=== PATIENT | female | born 1975 | race Asian ===

== ENCOUNTER 2025-11-06 15:53 | Inpatient (IN) | payer MEDICAID ==
[~2025-11-06] VITALS: Ht 162.6 cm; Wt 68.5 kg
[2025-11-06] MEDS ORDERED: IOHEXOL 350 MG/ML 100 ML VIAL ONE (16:37)
[2025-11-06 16:58] LABS: PLATELET COUNT (AUTO) 233 K/uL (150-450); RED BLOOD CELL COUNT(AUTO) 3.25 MIL/uL (4.00-5.20); RED CELL DISTRIBUTION WIDTH 13.3 % (11.5-14.5); WHITE BLOOD COUNT (AUTO) 9.0 K/uL (4.5-11.0)
[2025-11-06 17:06] LABS: CALCIUM, TOTAL 9.2 mg/dL (8.8-10.5); CREATININE 0.90 mg/dL (0.60-1.30); GLOMERULAR FILTR. RATE CALC > 60 mL/min (>60); GLUCOSE,RANDOM 119 mg/dL (70-110); SODIUM SERUM 136 mmol/L (136-145); UREA NITROGEN, BLOOD 18 mg/dL (7-18)
[2025-11-06 17:10] LABS: ASPARTATE AMINOTRANSFERASE 16.0 U/L (15-37); TOTAL PROTEIN, SERUM 8.0 g/dL (6.4-8.2)
[2025-11-06] MEDS: IOHEXOL 9 MG/ML 500 ML BOTTLE GT ONE (17:20)
[2025-11-06 17:30] LABS: APPEARANCE,URINE CLEAR (CLEAR); GLUCOSE, URINE (UA) NEGATIVE (NEGATIVE); LEUKOCYTE ESTERASE ,URINE MODERATE (NEGATIVE); NITRATE,URINE NEGATIVE (NEGATIVE); OCCULT BLOOD,URINE SMALL (NEGATIVE); SPECIFIC GRAVITIY, URINE 1.012 (1.003-1.030)
[2025-11-06 17:50] VITALS: PULSE 75; RESP 22; O2SAT 100
[2025-11-06 18:03] LABS: SQUAMOUS EPITHELIAL CELL,UR Rare /LPF (None Seen)
[2025-11-06] MEDS ORDERED: CYAN500T56 PO (18:31)
[2025-11-06] MEDS ORDERED: SENN-376 PO (18:31)
[2025-11-06] MEDS ORDERED: ATOR40TA28 PO (18:31)
[2025-11-06] MEDS ORDERED: ACET-2247 PO (18:31)
[2025-11-06] MEDS ORDERED: HYDR50TA36 PO (18:31)
[2025-11-06] MEDS ORDERED: LOSA-382 PO (18:31)
[2025-11-06] MEDS ORDERED: FAMO20 PO (18:31)
[2025-11-06] MEDS ORDERED: SODI133E17 PR (18:31)
[2025-11-06] MEDS ORDERED: INSU100I47 SQ (18:31)
[2025-11-06] MEDS ORDERED: ONDA-104 PO (18:31)
[2025-11-06] MEDS ORDERED: MAGN-169 PO (18:31)
[2025-11-06] MEDS ORDERED: AMLO-258 PO (18:31)
[2025-11-06] MEDS ORDERED: DOCU-412 PO (18:31)
[2025-11-06] MEDS ORDERED: CHLO473M6 PO (18:31)
[2025-11-06] MEDS ORDERED: BISA-151 PO (18:31)
[2025-11-06] MEDS ORDERED: SERT-158 PO (18:31)
[2025-11-06] MEDS ORDERED: CARV12 PO (18:31)
[2025-11-06 19:00] VITALS: PULSE 76; RESP 22; RESP 24; O2SAT 100
[2025-11-06] MEDS: LEVOFLOXACIN 750 MG/D5% WATER 150 ML IV ONE (19:28)
[2025-11-06 22:03] VITALS: PULSE 73; RESP 19; O2SAT 100
[2025-11-07] VITALS (15 sets, daily range): BP systolic 96–137; BP diastolic 56–69; PULSE 60–79; RESP 15–20; TEMP 98.2–99.5; O2SAT 95–100
[2025-11-07] MEDS ORDERED: MAGNESIUM HYDROXIDE SUSPENSION 30 ML UDCUP PO PRN
[2025-11-07] MEDS ORDERED: ONDANSETRON HCL 4 MG/2 ML VIAL IVP PRN
[2025-11-07] MEDS ORDERED: DOCUSATE SODIUM 250 MG CAPSULE PO PRN
[2025-11-07] MEDS ORDERED: ONDANSETRON 4 MG TABLET PO PRN
[2025-11-07] MEDS ORDERED: SODIUM PHOSPHATE,MONO-DIBASIC 133 ML ENEMA PR PRN
[2025-11-07] MEDS ORDERED: ALBUTEROL SULFATE 2.5 MG/0.5 ML NEB SOLUTION NEB PRN
[2025-11-07] MEDS ORDERED: BISACODYL 5 MG EC TABLET PO PRN
[2025-11-07] MEDS: POLYETHYLENE GLYCOL 3350 17 GM PACKET PEG SCH (08:33)
[2025-11-07] MEDS: SENNOSIDES 8.6 MG TABLET PO SCH (08:34)
[2025-11-07] MEDS: SERTRALINE HCL 50 MG TABLET PO SCH (08:34)
[2025-11-07] MEDS: ENOXAPARIN SODIUM 40 MG/0.4 ML PF SYRINGE SQ SCH (08:34)
[2025-11-07] MEDS: FAMOTIDINE 20 MG TABLET PO SCH (08:35)
[2025-11-07] MEDS: LOSARTAN POTASSIUM 50 MG TABLET PO SCH (08:41)
[2025-11-07] MEDS: CYANOCOBALAMIN 500 MCG TABLET PO SCH (08:59)
[2025-11-07] MEDS: CHLORHEXIDINE GLUCONATE 0.12% 15 ML UDCUP ORAL RINSE PO SCH (11:52)
[2025-11-07] MEDS: ACETAMINOPHEN 325 MG TABLET PO PRN (13:11)
[2025-11-07] MEDS: LEVOFLOXACIN 750 MG/D5% WATER 150 ML IV SCH (20:34)
[2025-11-07] MEDS: ATORVASTATIN CALCIUM 40 MG TABLET PO SCH (21:01)
[2025-11-08] VITALS (21 sets, daily range): BP systolic 111–128; BP diastolic 59–76; PULSE 64–87; RESP 15–24; TEMP 98.2–99.3; O2SAT 98–100
[2025-11-08 06:22] LABS: CALCIUM, TOTAL 9.1 mg/dL (8.8-10.5); CREATININE 1.02 mg/dL (0.60-1.30); GLOMERULAR FILTR. RATE CALC 57.0 mL/min (>60); GLUCOSE,RANDOM 136.0 mg/dL (70-110); SODIUM SERUM 134.0 mmol/L (136-145); UREA NITROGEN, BLOOD 16.0 mg/dL (7-18)
[2025-11-08 06:26] LABS: PLATELET COUNT (AUTO) 220 K/uL (150-450); RED BLOOD CELL COUNT(AUTO) 3.12 MIL/uL (4.00-5.20); RED CELL DISTRIBUTION WIDTH 13.4 % (11.5-14.5); WHITE BLOOD COUNT (AUTO) 7.0 K/uL (4.5-11.0)
[2025-11-08 18:31] LABS: GLUCOMETER DEV NAME(LOC) 5S.2E; GLUCOSE,POINT OF CARE 150 MG/DL (70-110)
[2025-11-09] VITALS (20 sets, daily range): BP systolic 100–124; BP diastolic 56–79; PULSE 60–82; RESP 16–25; TEMP 97.5–98.8; O2SAT 95–100
[2025-11-09 17:50] LABS: GLUCOMETER DEV NAME(LOC) 5N.2C; GLUCOSE,POINT OF CARE 120 MG/DL (70-110)
[2025-11-10] VITALS (17 sets, daily range): BP systolic 123–156; BP diastolic 61–84; PULSE 72–87; RESP 16–22; TEMP 97–99.9; O2SAT 97–100
[2025-11-10] MEDS ORDERED: MAGNESIUM HYDROXIDE SUSPENSION 30 ML UDCUP GT PRN (08:30)
[2025-11-10] MEDS ORDERED: BISACODYL 5 MG EC TABLET GT PRN (08:30)
[2025-11-10] MEDS: SERTRALINE HCL 50 MG TABLET GT SCH (09:11)
[2025-11-10] MEDS: FAMOTIDINE 20 MG TABLET GT SCH (09:11)
[2025-11-10] MEDS: CYANOCOBALAMIN 500 MCG TABLET GT SCH (09:11)
[2025-11-10] MEDS: LOSARTAN POTASSIUM 50 MG TABLET GT SCH (09:12)
[2025-11-10] MEDS: SENNOSIDES 8.8 MG/5 ML SYRUP UDCUP GT SCH (09:13)
[2025-11-10] MEDS ORDERED: ACETAMINOPHEN 325 MG TABLET GT PRN (12:00)
[2025-11-10] MEDS ORDERED: SENN8.8S31 GT (15:53)
[2025-11-10] MEDS ORDERED: DOCU50LI40 GT (15:53)
[2025-11-10] MEDS ORDERED: POLY17PO62 PEG (15:53)
[2025-11-10] MEDS ORDERED: ATORVASTATIN CALCIUM 40 MG TABLET GT SCH (21:00)
[2025-11-11] MEDS ORDERED: DOCUSATE SODIUM 100 MG/10 ML LIQUID UDCUP GT PRN (09:00)
[2025-11-11 20:46] LABS: GLUCOMETER DEV NAME(LOC) 5S.2E; GLUCOSE,POINT OF CARE 147 MG/DL (70-110)
[2025-11-11 20:46] LABS: GLUCOMETER DEV NAME(LOC) 5S.2E; GLUCOSE,POINT OF CARE 157 MG/DL (70-110)
== END 2025-11-10 18:20 | DRG 463 ==
LOC: EMS 15:57 → EDH 11-07 01:17 → 5S 11-07 03:30
PROVIDERS: ADMIT Family Medicine; ATTEND Family Medicine
PROC: 5A1945Z Respiratory Ventilation, 24-96 Consecutive Hours (ICD-10-PCS; principal; 2025-11-06)
DX: N39.0 Urinary tract infection, site not specified (principal); Z99.11 Dependence on respirator [ventilator] status; J96.10 Chronic respiratory failure, unspecified whether with hypoxia or hypercapnia; E11.9 Type 2 diabetes mellitus without complications; D64.9 Anemia, unspecified; R13.10 Dysphagia, unspecified; Z93.0 Tracheostomy status; I10 Essential (primary) hypertension; K76.0 Fatty (change of) liver, not elsewhere classified; N89.8 Other specified noninflammatory disorders of vagina; N83.201 Unspecified ovarian cyst, right side; E78.00 Pure hypercholesterolemia, unspecified; K44.9 Diaphragmatic hernia without obstruction or gangrene; K56.41 Fecal impaction; K57.30 Diverticulosis of large intestine without perforation or abscess without bleeding; K21.9 Gastro-esophageal reflux disease without esophagitis; Z86.73 Personal history of transient ischemic attack (TIA), and cerebral infarction without residual deficits; Z88.0 Allergy status to penicillin
CPT/HCPCS: 74177; 80048; 80076; 81001; 82962; 83690; 84703; 85025; 87077; 87081; 87086; 87186; 87210; 87491; 87591; 94002; 94003; 96365; 99285; G0378; J1650; J1956